=== PATIENT | female | born 1955 | race Caucasian/White ===

== ENCOUNTER → 2016-12-25 | Outpatient (CLI) | payer OTHER ==
[~2016-12-25] VITALS: Ht 172.7 cm; Wt 61.7 kg
[~2016-12-25] MED LIST: AMBEREN; CLONAZEPAM PO; FISH OIL 1,001000 M2 PO; IBUPROFEN 200200 M1 PO; MOBIC7.5 MG PO; NABUMETONE 500500 M1 PO; PRILOSEC 10MG C10 MG PO; TRAMADOL 50 MG50 MG PO; VITAMIN D1000 UNI1 PO; WELLBUTRIN SR150 MG
--- NOTE | ~2016-12-25 | HPC ---
[facility] [address] [place] [address] PAIN MANAGEMENT CONSULTATION Name: LUL ELLIOTT Room #: REG ENOCH LauWalkerSophyWalker#: [id number] Admission: 12/25/16 Attend Phys: Venkata Gutiérrez DO Discharge: Date of : 53 Report #: [id number] THIS REPORT FOR: //name// CC: Venkata Marshall MD DATE OF SERVICE: 12/25/2016 REFERRING PHYSICIAN: Jay Marshall MD CHIEF COMPLAINT: Left neck and shoulder pain. HISTORY OF PRESENT ILLNESS: As you know, the patient is a very pleasant 61-year-old female with longstanding history of chronic neck and bilateral shoulder pain. The patient's symptoms appear to be myofascial in origin. The patient has undergone trigger point injections on the right side with good efficacy in the past. She has now onset of left neck and left upper shoulder pain for which she indicates similar exacerbating factors as she noted on the right. She states stress and tension exacerbates symptoms, sitting improves pain as does rest. She returns today in followup visit requesting trigger point injections to address the myofascial pain on the left side. She denies injury or trauma to her neck or shoulder that may have led to recurrence of pain symptoms. ALLERGIES: No known drug allergies. CURRENT MEDICATIONS: Omeprazole, cholecalciferol, omega-3 fish oil, Wellbutrin, and multivitamin. SOCIAL HISTORY: The patient denies tobacco, alcohol, IV or illicit drug use. She is working, not receiving workmen's compensation, unaccompanied today. IMAGING: No new imaging available. PHYSICAL EXAMINATION: VITAL SIGNS: Blood pressure 133/75, pulse 69, respiratory rate 16 and unlabored, the patient is 99% on room air, height 5 feet 8 inches tall, weight 136 pounds, and BMI calculated 20.7. GENERAL: Well-developed, well-nourished, well-hydrated 61-year-old female, appearing stated age, placing current pain score at around 6-7/10. HEENT: Normocephalic, atraumatic. Pupils are equal, round, and reactive to light. Extraocular muscles are intact. Sclerae nonicteric without injection. EXTREMITIES: Show no clubbing, no cyanosis, and no edema. LUNGS: Clear. No wheeze, rhonchi, or rales. CARDIOVASCULAR: Regular. No appreciable gallop or rub. [address] [address] PAIN MANAGEMENT CONSULTATION Name: LUL ELLIOTT Room #: REG [id number] Admission: 12/25/16 Attend Phys: Venkata Gutiérrez DO Discharge: Date of : 53 Report #: [id number] ABDOMEN: Soft, nontender, nondistended, normoactive bowel sounds. EXTREMITIES: Show no clubbing, no cyanosis, and no edema. MUSCULOSKELETAL: There is palpatory tenderness over the paraspinal musculature of the cervical spine, no spinous process tenderness. There are multiple tender points and 2 discrete trigger points that are noted in the trapezius distribution. This is noted only on the left side. Upper extremity strength equal and symmetrical, intact to light touch from C5-T1 dermatomes. ASSESSMENT: 1. Myofascial pain. 2. Cervicalgia. 3. Muscle spasms. PLAN: 1. The patient has returned today in followup visit requesting trigger point injections on the left side of her neck. It does appear the patient is suffering from 2 different trigger points and multiple tender points in the cervical paraspinal musculature and trapezius. The patient has done very well with right-sided injections in the past addressing her neck and shoulder pain. She has requested these injections today. We have advised the patient the risks and benefits of the procedure, states she understood and wished to proceed. 2. No medication changes were made at today's visit. The patient to continue current medical therapy as previously prescribed. 3. The patient to return to our clinic on an as needed basis for possible repeat trigger point injections. PROCEDURE NOTE DESCRIPTION OF PROCEDURE: Trigger point injections in the left paracervical musculature. After obtaining written consent, the patient was placed in a seated position. By palpating using a single finger, 2 trigger points were identified that reproduced the patient's typical radiating pain pattern, there were also multiple tender points noted. The trigger points were located in the paraspinal musculature of the left cervical region and trapezius. Each of the target sites of injections were cleansed with aseptic technique using chlorhexidine. A 27-gauge 1-1/4-inch needle was advanced towards each trigger point until the patient's typical radiating pain pattern was reproduced. After negative aspiration for heme, 2 mL of a solution containing 1 mL 40 mg per mL, 40 mg of total triamcinolone and 3 mL bupivacaine 0.5% was injected in a fanned out distribution at each trigger point. Total volume of 4 mL being given. Sterile bandage was placed over each injection site. The patient tolerated the procedure well, carefully escorted to the recovery [address] [address] PAIN MANAGEMENT CONSULTATION Name: LUL ELLIOTT Room #: REG ENOCH Neel#: [id number] Admission: 12/25/16 Attend Phys: Venkata Gutiérrez DO Discharge: Date of : 53 Report #: [id number] room in stable condition. No apparent complication. After meeting discharge criteria, the patient discharged home. By: [id number] Venkata Gutiérrez DO /nt
[2016-12-25 08:42] VITALS: BP 133/75
== END | disposition home or self-care (01) ==
LOC: PAIN 06:55
DX: M79.1 Myalgia (principal); M54.2 Cervicalgia

== ENCOUNTER → 2018-03-10 | Outpatient (CLI) | payer OTHER ==
[~2018-03-10] VITALS: Ht 172.7 cm; Wt 62.9 kg
--- NOTE | ~2018-03-10 | HPC ---
[facility] [place] [address] PAIN MANAGEMENT CONSULTATION Name: LUL ELLIOTT Room #: REG ENOCH Neel#: [id number] Admission: 03/10/18 Attend Phys: Venkata Gutiérrez DO Discharge: Date of : 53 Report #: [id number] THIS REPORT FOR: //name// CC: Venkata MEZA MD DATE OF SERVICE: 03/10/2018 CHIEF COMPLAINT: Low back pain, right lower extremity pain with paresthesias. HISTORY OF PRESENT ILLNESS: As you know, the patient is a very pleasant 63-year-old female with an acute onset of low back pain, right lower extremity pain and paresthesias. The patient states no injury, no trauma that may have led to symptom recurrence. She states she was in her normal state of health when she began to experience right buttock pain initially, that progressively worsened. She tried last-ehq-cydxapw medication management, stretching exercises and physical therapy techniques she had learned in the past to address ongoing pain issues. Unfortunately, this did not provide improvement. She continued to experience increasing pain and debility. She states that over the weekend, she was unable to move due to intense pain radiating from the buttock area down the leg. She has also been experiencing increasing right low back pain since this presentation. She has been referred to our service to discuss treatment options for suspected lumbar radiculopathy. She continues to utilize vjgq-adk-iidiyzi analgesic medications and is continuing daily stretching in the morning and the evening hours, though this has not been effective for treatment. ALLERGIES: No known drug allergies. CURRENT MEDICATIONS: Multivitamin 1 tab per day, bupropion SR 150 mg 2 tabs in the morning, omega-3 fish oil 1 tab per day, cholecalciferol 1000 units per day, omeprazole 10 mg per day. SOCIAL HISTORY: The patient denies tobacco, alcohol, IV or illicit drug use. She is working, not receiving workmen's compensation, unaccompanied today. IMAGING: There is no new imaging available. PHYSICAL EXAMINATION: VITAL SIGNS: Blood pressure 130/69, pulse 74, respiratory rate 14 and unlabored. The patient is 100% on room air. Height 5 feet 8 inches tall, weight 138.6 pounds, BMI calculated 21.1. GENERAL: Well-developed, well-nourished, well-hydrated 63-year-old female appearing stated age, placing current pain score 5-6/10. HEENT: Normocephalic, atraumatic. Pupils equal, round, reactive to light. Extraocular muscles are intact. Sclerae nonicteric without injection. [address] [address] PAIN MANAGEMENT CONSULTATION Name: ELLIOTTLUL Piyush Room #: REG [facility] Dandre.#: [id number] Admission: 03/10/18 Attend Phys: Venkata Gutiérrez DO Discharge: Date of : 53 Report #: [id number] NEUROLOGIC: Cranial nerves 2-12 grossly intact. Speech fluent. The patient deemed an excellent historian. LUNGS: Clear. No wheeze, rhonchi or rales. CARDIOVASCULAR: Regular. No appreciable gallop, no rub. ABDOMEN: Soft, nontender, nondistended. EXTREMITIES: Show no clubbing, no cyanosis, no edema. MUSCULOSKELETAL: Lower extremity strength appears symmetrical 5/5. Slight giveaway strength noted with hip flexion on the right when compared to left. This is due to pain generation. Seated straight leg raising is positive for pain generation in dermatomal distribution. Supine straight leg raising positive on the right, negative left. Gait mildly antalgic favoring right lower extremity over left. Stance is slightly forward flexed lumbar spine, minor loss of lordotic curvature. There is paraspinal musculature discomfort noted with palpation, but no specific trigger points. Ankle clonus negative. Babinski is negative. Intact to light touch from L1 through S2 dermatomes. ASSESSMENT: 1. Lumbar radiculopathy. 2. Degeneration of lumbar spine. 3. Muscle spasms. PLAN: 1. Based on today's physical exam and history the patient has provided, the description the patient uses in regards to pain as well as location of symptoms, likely source of the patient's pain is lumbar radiculopathy. The patient comes to us today with increasing pain and disability due to ongoing pain issues involving the low back on the right side radiating to the right buttock and down the leg. She describes pain as numbness, tingling, burning and electrical in sensation. She indicates no injury, no trauma that may have led to symptom recurrence. She has trialed msii-qsy-xrbtiqp medications and continued stretching exercises at home, but has not noted improvement in symptoms. She was referred to our clinic to trial the possibility of undergoing epidural injections to address lumbar radicular symptoms. She comes to us today with no imaging for further evaluation. 2. We will send the patient for x-ray imaging of the lumbar spine. We will send her for AP and lateral imaging to help to determine the potential changes in the lumbar region. She will undergo the x-ray imaging today. Imaging was obtained while the patient was here at our clinic, does show transitional lumbar anatomy and bilateral lumbarization of the S1. There are some mild arthritic changes, but otherwise relatively normal x-ray imaging. 3. The patient and I discuss treatment options for suspected lumbar radicular symptoms given the findings on physical exam, the distribution of symptoms she is experiencing. We discussed physical therapy, stretching exercises, core strengthening as a treatment option. We discussed medication management, adding [facility] [address] [place] [address] PAIN MANAGEMENT CONSULTATION Name: LUL ELLIOTT Piyush Room #: REG [facility].#: [id number] Admission: 03/10/18 Attend Phys: Venkata Gutiérrez DO Discharge: Date of : 53 Report #: [id number] neuropathic pain medications and low-dose nonsteroidal anti-inflammatory. We discussed epidural injections under fluoroscopic guidance and ultimately potential surgical options. After reviewing the risks and benefits of all proposed treatment options, the patient chose to begin with the epidural injection under fluoroscopic guidance due to increasing pain and lack of capability of returning to work due to pain issues. The patient was advised third constitution party payer restrictions require that authorization be obtained. She awaited authorization as her third constitution party does provide same day authorizations. We received the authorization without complication. She has been prepped to undergo the procedure today. The patient was advised risks and benefits of a lumbar epidural injection. These risks include but are not necessarily limited to bleeding, bruising, infection, worsening pain, no relief of pain, also risk of temporary or permanent muscle weakness, temporary or permanent nerve damage, possible paralysis and . The patient states she understood and wished to proceed. 4. No medication changes made at today's visit. The patient will continue current medical therapy as previously prescribed. 5. We will see the patient back in followup visit on an as needed basis for possible next in the series of epidural injections. We have advised the patient to remain relatively sedentary the rest of today, allowing the epidural injection to provide the best benefit possible. She can then return to normal activities as her pain improves. We will see her back on an as needed basis. We wish to thank the referring physician for the opportunity to see this patient in consultation. We will keep you apprised of her response to treatment as we address suspected lumbar radicular symptoms. Again, we wish to thank you for the opportunity to see the patient in consultation. PROCEDURE NOTE DESCRIPTION OF PROCEDURE: L5-S1 right paramedian epidural steroid injection under fluoroscopic guidance. This is the first procedure of the first series that the patient is undergoing. After obtaining written consent, the patient was taken back to the fluoroscopy suite, placed in a prone position with pillow under the abdomen to decrease lumbar lordosis. The skin overlying the lumbosacral area was then prepped and draped in aseptic fashion. The L5-S1 vertebral interspace was then identified by AP fluoroscopy. The skin and subcutaneous tissue overlying the target site [address] [address] PAIN MANAGEMENT CONSULTATION Name: LUL ELLIOTT Room #: REG ENOCH Shaikh#: [id number] Admission: 03/10/18 Attend Phys: Venkata Gutiérrez DO Discharge: Date of : 53 Report #: [id number] of injection was anesthetized with 3 mL 1% lidocaine. A 20-gauge 3-1/2-inch Tuohy needle was then advanced under fluoroscopic guidance towards the epidural space using a right paramedian approach. The epidural space was identified using loss of resistance to air technique. After negative aspiration for heme or cerebrospinal fluid, a total of 1 mL of Omnipaque was injected. A lumbar epidurogram was confirmed using both AP and lateral fluoroscopy. After negative aspiration for heme or cerebrospinal fluid, 5 mL of a solution containing 2 mL 40 mg/mL 80 mg total triamcinolone and 3 mL of lidocaine 1% was injected in increments. Contrast spread was noted posterior epidural space. The needle was then retracted approximately half way and needle tract flushed with 1 mL of 1% lidocaine. Needle was then removed. There were no apparent sensory or motor deficits in the lower extremity following the procedure. A sterile bandage was placed over the injection site. The heart rate, pulse, oximetry and blood pressure were continuously monitored after the procedure. There were no apparent complications. The patient tolerated the procedure well and was carefully escorted to the recovery room in stable condition. There were no apparent complications. After meeting discharge criteria, the patient was then discharged home. <ELECTRONICALLY SIGNED> By: Venkata Gutiérrez DO 03/11/18 1207 [id number] Venkata Gutiérrez DO /nt
[2018-03-10 07:59] VITALS: BP 130/69
== END | disposition home or self-care (01) ==
LOC: PAIN 07:35
DX: M51.16 Intervertebral disc disorders with radiculopathy, lumbar region (principal); G89.29 Other chronic pain; M62.838 Other muscle spasm; Z79.899 Other long term (current) drug therapy

== ENCOUNTER → 2019-03-24 | Outpatient (CLI) | payer OTHER ==
[~2019-03-24] VITALS: Ht 170.2 cm; Wt 60.0 kg
[~2019-03-24] MED LIST changes: +MEDROL DOSPAK21 TA1 PO; +METHOCARBAMOL500 M2 PO
[2019-03-24 13:06] VITALS: BP 132/72
--- NOTE | 2019-03-24 13:09 | NUR ---
Document wound assessment on appropriate Wound Pressure, Monitor intervention!
--- NOTE | 2019-03-24 13:09 | NUR ---
Pain Clinic Assessment: 1. History of Osteoarthritis: NECK History of Rheumatoid Arthritis: Not Applicable 2. Height: 5 ft. 7 in. 170.2 cm. Weight: 132.2 lb. oz. 59.965 kg. Patient's BMI: 20.7 3. Vital Signs: BP: 132/72 Pulse: 73 Resp: 18 Temp: 02 Sat: 100 ECG Mon: 4. Pain Intensity: 4 5. Fall Risk: Dizziness: N Needs help standing or walking: N Fallen in the last 3 months: N Fall risk comments: 6. Patient on Blood Thinner: None 7. History of Hypertension: N 8. Opioid Therapy greater than 6 weeks: N Opiate Contract Signed: 9. Risk Assessment Tool Provided: 10. Functional Assessment Tool: 11. Recreational Drug Use: Never Drug Type: Tobacco Use: Never Smoker Tobacco Type: Amount or Packs/day: How Many Years: Alcohol Use: Yes Frequency: Weekly Quant: 3-4
--- NOTE | 2019-06-08 07:45 | HPC ---
[facility] [place] [address] [address] [place] [address] PAIN MANAGEMENT CONSULTATION Name: LUL ELLIOTT Room #: REG ENOCH JaySophy.#: [id number] Admission: 03/24/19 Attend Phys: Venkata Gutiérrez DO Discharge: Date of : 53 Report #: [id number] THIS REPORT FOR: cc: Jay Marshall MD, M. Kathryn MD Johnson, James E. DO ~ THIS REPORT FOR: //name// DATE OF SERVICE: 03/24/2019 CHIEF COMPLAINT: Low back pain, right posterolateral thigh pain. HISTORY OF PRESENT ILLNESS: As you know, the patient is a very pleasant 64-year-old female who has returned today in followup visit reporting pain score 4/10. She returns to discuss options for treatment. We last saw the patient on 03/10/2018 where she underwent an epidural injection under fluoroscopic guidance and reviewed MRI. She returns today with recurrent pain, now placing pain score about 4/10. States the pain is exacerbated with standing, sitting and lying down, improves with medications, rest and heat. She states pain begins in low back, radiates to right buttock down to the right knee. She describes the pain as cramping. She returns today to discuss options for treatment. ALLERGIES: No reported drug allergies. CURRENT MEDICATIONS: Multivitamin, bupropion, omega-3 fish oil, cholecalciferol, omeprazole. SOCIAL HISTORY: The patient denies tobacco, alcohol, IV or illicit drug use. She is retired, not receiving Workmen's Compensation, unaccompanied today. IMAGING: No new imaging available. PHYSICAL EXAMINATION: VITAL SIGNS: Blood pressure 132/72, pulse 73, respiratory rate 18 and unlabored. The patient is 100% on room air. Height 5 feet 7 inches tall, weight 132.2 pounds and BMI calculated 20.7. GENERAL: Well-developed, well-nourished, well-hydrated 64-year-old female, appearing stated age, pain is rated today 0/10. HEENT: Normocephalic, atraumatic. Pupils are equal, round, reactive to light. EXTREMITIES: Show no clubbing, no cyanosis, no edema. MUSCULOSKELETAL: Lower extremity strength appears symmetrical again today, 5/5. Slight giveaway strength noted with hip flexion on the right when compared to left. Knee extension causes no change in overall pain. Seated straight leg [facility] [address] [place] [address] PAIN MANAGEMENT CONSULTATION Name: LUL ELLIOTT Piyush [id number] Admission: 03/24/19 Attend Phys: Venkata Gutiérrez DO Discharge: Date of : 53 Report #: [id number] raising positive right. Supine straight leg raising positive right. Ralf's test is negative. ASSESSMENT: 1. Lumbar radiculopathy. 2. Lumbosacral spondylosis with radiculopathy. 3. Muscle spasms. PLAN: 1. The patient returns today in followup visit reporting pain now at 4/10 which is actually an improvement for the patient. She has requested adjustments in medication therapy. She did well with previous epidural injection, but unfortunately symptoms did begin to return, though this appears to be much more mild and much less in intensity. She returns to discuss options for treatment. 2. We recommend the patient begin Medrol Dosepak. I have given the patient a standard Dosepak 4 mg dose 21 tablets to take as directed. The patient can contact our clinic with any questions or concerns. 3. The patient will be started on methocarbamol 500 mg dose 1 tab p.o. t.i.d. p.r.n. muscle spasms. I have given the patient #90 tablets with 2 refills if she wishes to have these used consistently. 4. We will see the patient back in followup visit on an as needed basis. <ELECTRONICALLY SIGNED> By: Venkata Gutiérrez DO 06/08/19 0745 [id number] [id number] Venkata Gutiérrez DO /nt
== END ==
LOC: PAIN 06:57
DX: M47.27 Other spondylosis with radiculopathy, lumbosacral region (principal); M62.838 Other muscle spasm; M79.651 Pain in right thigh; Z79.899 Other long term (current) drug therapy